=== PATIENT | male | born 1950 | race Caucasian/White ===

== ENCOUNTER 2016-07-20 20:44 | Emergency (ER) | payer BC, OTHER ==
[~2016-07-20] VITALS: Ht 180.3 cm; Wt 100.0 kg
[~2016-07-20 20:44] MED LIST: ALL300 PO; ASPCH81 PO; ATOR-54 PO; GLC/500 PO; HYDR12.56 PO; LISI-791 PO; METO-479 PO; NITR0.4S UT
[2016-07-20 20:45] VITALS: BP 151/90; PULSE 89; TEMP 36.7; O2SAT 97; Ht 180.3 cm; Wt 100.0 kg
[2016-07-20] MEDS ORDERED: AMOXICILLIN/CLAVULANATE TAB 875 MG TAB PO ONE (21:15)
[2016-07-20] MEDS ORDERED: AMOX875T PO (21:17)
--- NOTE | 2016-07-20 21:39 | EMERGENCY ROOM VISIT NOTE ---
History First contact with patient: 20:49 Chief Complaint: HEAD PAIN Stated Complaint: PAIN ON RT SIDE OF HEAD INTO NECK,HURT SO SWALLOW History of Present Illness The patient is a 66 year old male who presents to the Emergency Room with complaints of intermittent right-sided scalp, ear and neck discomfort. The patient reports that he does not recall any recent runny nose, congestion, sore throat or cough. He reports that the pain is worsened when he attempts to clear his ears by holding his breath. He has not noticed any pain radiating into the neck, nose or inside of the throat. The patient denies any history of seasonal allergies. The patient does have a history of tinnitus. He denies any burning sensation of the scalp, and denies any temporal pain. The patient reports that riding his garden tractor tonight was causing significant ear discomfort, and became concerned that he had an ear infection. He rates his discomfort a 7 out of 10. Review of Systems 10 system review was performed and was negative except for pertinent positives and negatives as indicated in history of present illness Past Medical/Surgical History Medical Problems: (1) Benign hypertension (2) Coronary artery bypass grafting (3) Coronary artery disease (4) Diabetes mellitus type 2 Surgical Problems: (1) H/O knee surgery (2) H/O shoulder surgery (3) H/O vasectomy Family History Unremarkable Social History Smoking Status: Never Smoker Alcohol Use: occasionally Marital Status: Occupation Status: employed Current/Historical Medications Scheduled Allopurinol (Zyloprim *), 300 MG PO HS Amoxicillin & Pot Clavulanate (Augmentin 875-125 mg), 1 TAB PO BID Aspirin (Aspirin Tab-Chewable *), 162 MG PO DAILY Atorvastatin (Lipitor), 20 MG PO HS Hydrochlorothiazide (Hctz), 12.5 MG PO DAILY Lisinopril (Zestril), 10 MG PO DAILY Metformin Hcl (Glucophage), 500 MG PO DAILY Metoprolol Succinate (Toprol Xl), 50 MG PO DAILY Nitroglycerin (Nitrostat), 0.4 MG UT PRN Allergies Coded Allergies: Heparin (Verified Allergy, Mild, 09/18/12) Sulfa Drugs (Verified Allergy, Unknown, 09/18/12) Physical Exam Vital Signs Date Time Temp Pulse Resp B/P Pulse Ox O2 Delivery O2 Flow Rate FiO2 07/20/16 20:45 36.7 89 20 151/90 97 Room Air Pain Rating (0-10): 4.0 Physical Exam CONSTITUTIONAL: Healthy and well nourished. Alert and oriented X 3 with positive affect. Patient does not appear in any acute distress. HEENT: Normocephalic, atraumatic. Pupils equal, round and reactive. Examination of the right ear shows a prior surgical resection. There is no external ear erythema or edema. Examination shows bulging of the TM without any air-fluid levels, effusions or TM erythema. The patient has no focal tenderness to palpation of the scalp or temporal region. No tenderness to palpation or percussion of the mastoids. He has mild tenderness through the area under the right ear. There is no soft tissue erythema in this region. OROPHARYNX: Examination does not show any obvious gingival erythema, tonsillar hypertrophy, posterior pharyngeal erythema, postnasal drip or exudates. Negative trismus. No evidence for Edward's angina or retropharyngeal abscess. NECK: Full active range of motion without discomfort. No JVD or carotid bruits on auscultation. LYMPHATICS: No cervical chain adenopathy. RESPIRATORY: Clear to auscultation bilaterally with no wheezing, crackles, rhonchi or stridor. CARDIOVASCULAR: Regular rate and rhythm with no murmurs, rubs or gallops. MUSCULOSKELETAL: Full range of motion of all joints without discomfort. INTEGUMENTARY: No rash or other significant dermatologic conditions noted. Specifically the patient does not have any scalp or facial rash. NEUROLOGIC: Cranial nerves II-XII grossly intact. No focal neurologic deficits noted. Medical Decision & Procedures Medications Administered Medications (Trade) Dose Ordered Sig/[facility] Route Start Time Stop Time Status Last Admin Dose Admin Amoxicillin/ Clavulanate Potassium (Augmentin Tab) 875 mg ONE ONCE PO 07/20/16 21:15 07/20/16 21:19 DC 07/20/16 21:24 875 MG ED Course Patient history and physical exam were performed. Nurse's notes were reviewed. Given physical exam findings and patient history, I feel that this is most likely a eustachian tube dysfunction or possible sinus etiology. The patient was provided a prescription for Augmentin 875 mg. He was dispensed one pill while in the emergency department. The patient reports that he will be going away over the weekend. He was given contact information for [facility] should his symptoms not improve by Saturday. He was instructed to seek further emergent reevaluation for any other concerning symptoms such as developing headache, fever, facial droop, right-sided numbness or other concerning symptoms. The patient was happy with plan of care, and voiced understanding of all discharge instructions. Medical Decision As indicated in the previous section, I suspect sinus versus eustachian tube dysfunction. His clinical exam is not consistent with temporal arteritis, mastoiditis, serous or suppurative otitis media. I also do not suspect carotid stenosis, CVA or migraine. Trigeminal neuritis and Coy's palsy were also considered, but has no extension to the face. There is no rash consistent with herpes zoster. Impression Primary Impression: Eustachian tube dysfunction Departure Information Dispostion Home / Self-Care Prescriptions Amoxicillin & Pot Clavulanate (Augmentin 875-125 mg) 1 Tab Tab 1 TAB PO BID for 10 Days, #20 TAB Prov: Og Pulido PA 07/20/16 Referrals Brady Payan D.O. Pagnotto, John F., D.O. Piatt, John E., III, M.D. (PCP) Forms HOME CARE DOCUMENTATION FORM, IMPORTANT VISIT INFORMATION Patient Instructions My [facility] Additional Instructions Complete all Augmentin antibiotics as prescribed. Ibuprofen or Tylenol as needed for pain. If pain has not significantly improved within the next 3 days, suggest follow- up with ENT (Dr. Payan) for further reevaluation and management. Seek further emergent reevaluation for any developing dizziness, fever, headache , right facial droop/paralysis or other concerning symptoms. Problem Qualifiers Primary Impression: Eustachian tube dysfunction Laterality: right Qualified Codes: H69.81 - Other specified disorders of eustachian tube, right ear
== END 2016-07-20 21:25 | disposition home or self-care (01) ==
LOC: C.EDB 20:44 → C.EDD 21:25
DX: H69.81 Other specified disorders of Eustachian tube, right ear (principal); I10 Essential (primary) hypertension; I25.10 Atherosclerotic heart disease of native coronary artery without angina pectoris; E11.9 Type 2 diabetes mellitus without complications; Z79.82 Long term (current) use of aspirin

== ENCOUNTER 2019-03-04 08:15 | Inpatient (IN) ==
[2019-03-04] MEDS ORDERED: fentaNYL citrate 100 MCG/2 ML VIAL IV STA (08:33)
[2019-03-04] MEDS ORDERED: SODIUM CHLORIDE 0.9% 500 ML IV ONE (08:33)
[2019-03-04] MEDS ORDERED: methylPREDNISolone 125 MG/2 ML VIAL IV STA (08:33)
[2019-03-04] MEDS ORDERED: ALBUT/IPRATROP 3MG/0.5MG NEB 3 ML VIAL NEB ONE (08:33)
[2019-03-04] MEDS ORDERED: HYDROCODONE/HOMATROPINE SYRUP 5MG/1.5MG 5ML UDP PO STA (08:33)
[2019-03-04 09:01] LABS: Basophils # (auto) 0.02 K/uL (0-0.2); Basophils % (auto) 0.1 %; Eosinophils # (auto) 0.03 K/uL (0-0.5); Eosinophils % (auto) 0.2 %; Hematocrit (blood only) 39.2 % (42-52); Hemoglobin 13.9 g/dL (14.0-18.0); Immature Granulocytes # (auto) 0.06 K/uL (0.00-0.02); Immature Granulocytes % (auto) 0.3 %; Lymphocytes # (auto) 1.08 K/uL (1.2-3.4); Lymphocytes % (auto) 5.5 %; Mean Corpuscular Hgb Conc 35.5 g/dL (32-36); Mean Corpuscular Volume 87.3 fL (80-100); Monocytes # (auto) 1.57 K/uL (0.11-0.59); Monocytes % (auto) 8.1 %; Neutrophils # (auto) 16.73 K/uL (1.4-6.5); Neutrophils % (auto) 85.8 %; Platelet Count 455 K/uL (130-400); RDW Coefficient of Variation 12.3 % (11.5-14.5); RDW Standard Deviation 39.5 fL (36.4-46.3); Red Blood Count 4.49 M/uL (4.7-6.1); White Blood Count 19.49 K/uL (4.8-10.8)
[2019-03-04 09:13] LABS: D Dimer 800 ug/L FEU (0-500)
--- NOTE | 2019-03-04 09:16 | XRay Report ---
SINGLE VIEW CHEST CLINICAL HISTORY: Cough and dyspnea. FINDINGS: An AP, portable, upright chest radiograph is compared to study dated 09/19/2012. The examina tion is degraded by portable technique and patient rotation. The heart is enlarged. The pulmonary vas culature is noncongested. There is elevation of the left hemidiaphragm with associated atelectasis. S cattered calcified granulomas are observed. Patchy airspace opacities are seen at the right lung base . No large pleural effusion or pneumothorax is seen. The skeletal structures are osteopenic. The bony thorax is grossly intact. IMPRESSION: 1. Mild cardiac enlargement without radiographic evidence of congestive failure. 2. Patchy airspace opacities are present at the right lung base. This could represent atelectasis kelly sara a mild infectious/inflammatory pneumonitis. Clinical correlation will be required. ACT 112: Negative or not required by law. Electronically signed by: Frank Gallardo M.D. 03/04/2019 9:14 AM
[2019-03-04 09:22] LABS: BUN Creatinine Ratio 11.2 (10-20); Blood Urea Nitrogen 14 mg/dl (7-18); Calcium 9.5 mg/dl (8.5-10.1); Carbon Dioxide 26 mmol/L (21-32); Chloride 97 mmol/L (98-107); Est GFR (African American) 68.7; Est GFR (Non-African American) 59.3; Glucose 216 mg/dl (70-99); Magnesium 1.6 mg/dl (1.8-2.4); Potassium 3.6 mmol/L (3.5-5.1); Sodium 132 mmol/L (136-145)
[2019-03-04 09:27] LABS: Troponin I < 0.015 ng/ml (0-0.045)
[2019-03-04] MEDS ORDERED: VANCOMYCIN HCL 1,750 MG in SODIUM CHLORIDE 0.9% 500 ML IV ONE (09:59)
[2019-03-04] MEDS ORDERED: VANCOMYCIN CONSULT ACTIVE PRN (09:59)
[2019-03-04] MEDS ORDERED: CEFEPIME 2,000 MG/20 ML VIAL IV STA (09:59)
[2019-03-04] MEDS ORDERED: SODIUM CHLORIDE 0.9% 1000ML 1,000 ML IV ONE (09:59)
[2019-03-04] MEDS ORDERED: OPTIRAY 320 125ml IV PRN (10:23)
--- NOTE | 2019-03-04 10:27 | CT Scan Report ---
CT SCAN OF THE BRAIN WITHOUT IV CONTRAST CLINICAL HISTORY: Headache. COMPARISON STUDY: No priors. TECHNIQUE: Unenhanced axial CT scan of the brain is performed from the vertex to the skull base. A do se lowering technique was utilized adhering to the principles of ALARA. CT DOSE: 537.48 mGy.cm FINDINGS: Brain parenchyma: There are age-related involutional changes noting mild subcortical and periventric ular microangiopathic change. There is no hemorrhage, mass effect, or evidence of acute territorial i schemia by CT criteria. Ramos-white matter differentiation is preserved. No extra-axial fluid collecti on is seen. Ventricles, sulci, cisterns: Prominent secondary to involutional change. Intracranial vasculature: There is atherosclerotic calcification of the cavernous carotid and vertebr al arteries. Calvarium: Unremarkable. Sinuses and mastoids: There is moderate mucosal thickening within the ethmoid sinuses. Mild mucosal t hickening is noted in the frontal and sphenoid sinuses. The mastoid air cells are well pneumatized. Orbits: The bony orbits are grossly intact. IMPRESSION: There is no hemorrhage, mass effect, or evidence of acute territorial ischemia by CT crit margoth. ACT 112: Negative or not required by law. Electronically signed by: Frank Gallardo M.D. 03/04/2019 10:25 AM
--- NOTE | 2019-03-04 10:44 | CT Scan Report ---
CT ANGIOGRAM OF THE CHEST CLINICAL HISTORY: Cough. Dyspnea. Atypical chest pain. COMPARISON STUDY: Chest x-ray dated 03/04/2019. TECHNIQUE: Following the IV administration of 93 cc of Optiray 320, CT angiogram of the chest was per formed from the upper abdomen to the thoracic inlet utilizing the pulmonary embolus protocol. Images are reviewed in the axial, sagittal, and coronal planes. 3-D MIPS images are created and assessed. IV contrast was administered without complication. A dose lowering technique was utilized adhering to the principles of ALARA. CT DOSE: 455.99 mGy.cm FINDINGS: Thyroid: Imaged portions of the thyroid gland are normal in size and attenuation. Thoracic aorta: There is atherosclerotic calcification of the thoracic aorta, which is normal in kerri jeff and demonstrates bovine variant arch anatomy. No dissection is seen. Pulmonary vasculature: The main pulmonary arteries are dilated suggesting pulmonary artery hypertensi on. There are no filling defects identified in main, lobar, or segmental pulmonary branches to sugges t pulmonary embolus. Evaluation of the peripheral branches is degraded by motion artifact. Heart: The heart is enlarged and without pericardial effusion. The coronary arteries are densely calc ified. Lungs and pleural spaces: Posterior change and volume loss in the left lung are consistent with previ ous surgical resection. There is patchy airspace consolidation present at the right lung base. Peribr onchial thickening is noted in the right middle and right lower lobes with intraluminal mucus pluggin g/secretions. There are scattered calcified thrombus. A 3 mm right upper lobe pulmonary nodule is see n on image #189. A 3 mm right apical nodule is seen on image #219. The trachea and central airways ar e clear. Mediastinum: There is no mediastinal lymphadenopathy. Ana: Enlarged right hilar nodes measure up to 14 mm in short axis. Axillae: There is no axillary lymphadenopathy. Upper abdomen: There is a small hiatal hernia. Partially visualized upper abdominal viscera is otherw ise grossly unremarkable. Skeletal structures: The skeletal structures are osteopenic. No lytic or blastic bony lesions are see n. IMPRESSION: 1. There is no evidence of pulmonary embolus in the main, lobar, or segmental pulmonary arteries. 2. Patchy airspace consolidation is seen at the right lung base as above. The appearance is typical f or pneumonia/aspiration pneumonitis. Clinical correlation will be required and radiographic follow-up to resolution is recommended. 3. Cardiomegaly. 4. Mildly enlarged right hilar lymph nodes are likely on a reactive basis. 5. Postoperative change and volume loss are consistent with previous left-sided pulmonary resection. Correlation with the patient's medical/surgical history will be required. 6. There are 2 low suspicion right upper lobe pulmonary nodules which measure 3 mm. Correlation with any prior outside imaging studies is recommended to assess for stability. 7. Additional findings as above. ACT 112: Positive. There are findings on this exam that require communication between the performing entity and the patient following Patient Test Result Information Act ([place] Act 112) guidelines. Electronically signed by: Frank Gallardo M.D. 03/04/2019 10:43 AM
[2019-03-04 10:52] LABS: Appearance Urine Clear (Clear); Bilirubin Urine Negative (Negative); Blood Urine Negative (Negative); Color Urine Yellow; Glucose Urine UA 1+ (Negative); Ketones Urine 1+ (Negative); Leukocyte Esterase Urine Negative (Negative); Nitrite Urine Negative (Negative); Protein Urine Negative (Negative); Specific Gravity Urine 1.018 (1.000-1.030); Urobilinogen Urine Negative (Negative); pH Urine 5.5 (4.5-7.5)
[2019-03-04] MEDS: MAGNESIUM SULFATE / D5W 1 GM/100 ML BAG IV SCH ×2 (11:28→12:44)
--- NOTE | 2019-03-04 12:12 | History & Physical Report ---
Date of Service March 04, 2019 Assessment & Plan (1) Sepsis: Possible related to Pneumonia Meet sepsis criteria on admission with tachycardia, Elevated WBC and Lactic acid CXR showed patchy airspace opacities are present at the right lung base. CTA chest showed patchy airspace consolidation is seen at the right lung base Received Vanco and Cefepime and IV steroid in the ER Will do nasal swab to r/o MRSA, then if positive will continue Vanco Will continue cefepime and add doxycycline Blood cx collected in the ER pending Will repeat Lactic Acid and continue IVF Will monitor WBC (2) Pneumonia: Present with worsening cough for about 3 weeks CTA chest showed Patchy airspace consolidation is seen at the right lung base Elevated Lactic acid and WBC Will continue abx with Cefepime and doxycycline Will add guaifenesin Will do neb treatment prn and oxygen supplement (3) Hypomagnesemia: Possible related to poor oral intake Mg on admission 1.6 Mg being replaced Continue to monitor electrolytes (4) Sinus tachycardia: Due to acute infection and low magnesium EKG on admission showed sinus rhythm with 1st degree av block Mg replaced Will continue IVF Continue Metoprolol Will monitor in med tele CAD s/p bypass Continue aspirin, statin and metoprolol HTN BP stable Continue Amlodipine and Lisinopril Continue Monitor BP Diabetes Most recent Hba1c 7 on 09/19 Metformin on hold Check Hba1c in am Will put on Novolog sliding scale Continue monitor BS Elevated D-Dimer Possible related to infection CTA chest negative for PE No edema and tenderness noted in b/l LE Cervical Spondylosis Follow up with pain management at [place] Schedule for injection on Saturday, will call to reschedule him. DVT px on SCD since pt is allergies with Heparin/ambulates CODE STATUS Full code History of Present Illness Chief Complaint: Worsening cough Primary Care Provider: Gold Gamino MD 69 years old male with past medical history of paroxysmal A. fib, hypertension, dyslipidemia, Gouty arthropathy, diabetes, cervical spondylosis CAD s/p bypass presented to the ER for worsening cough. Patient said for about 3 weeks he has been having a cough. He said for the first 2 weeks the cough was dry, but in the third week he started to have greenish productive sputum. Patient said that he did not seek any help from his PCP but he tries [id number]-rth-[id number] cough med with no relief. He said that in the last few days symptoms got worse to the point where he has not been eating or drinking much since Saturday. He said that his checked his temperature seems to have a low grade fever, but he said that he had some chills. He denies any recent travel or sick contacts. Denies any chest pain, palpitation, dizziness, and shortness of breath. Allergies Allergy/AdvReac Type Severity Reaction Status Date / Time heparin Allergy Mild Verified 03/04/19 09:55 Sulfa (Sulfonamide Allergy Unknown Verified 03/04/19 09:55 Antibiotics) Home Medications Home Medications Medication Instructions Recorded Confirmed Type allopurinol 300 mg PO 03/04/19 03/04/19 History amlodipine 10 mg PO [facility] 03/04/19 03/04/19 History aspirin 162 mg PO [facility] 03/04/19 03/04/19 History atorvastatin 40 mg PO 03/04/19 03/04/19 History lisinopril 40 mg PO [facility] 03/04/19 03/04/19 History metformin 1,000 mg PO BIDM 03/04/19 03/04/19 History metoprolol succinate 50 mg PO [facility] 03/04/19 03/04/19 History nitroglycerin [Nitrostat] 0.4 mg SUBLINGUAL UD 03/04/19 03/04/19 History sildenafil 100 mg PO UD 03/04/19 03/04/19 History Past Med/Surg History Medical History Eustachian tube dysfunction (Acute) 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 Surgical History H/O knee surgery (Resolved) H/O shoulder surgery (Resolved) H/O vasectomy (Resolved) History of external ear surgery Family History Other No pertinent family history in first degree relatives Social History Preferred Language: Indian Communication Ability: Effective Cube Cutter Required: No Beliefs That Will Affect Care: Tenriism Tenriism Beliefs: Advent Current Living Situation: Spouse Other Information That Helps Us Care for You: No Feels Safe at Home: Yes Safety Concerns: Feels Safe At This Time Smoking Status: Never smoker Hx Alcohol Use: Yes (Quit 10 years ago.) Alcohol type: beer Hx Substance Use: No Review of Systems Review of Systems: All systems reviewed & are unremarkable except as noted in HPI & below Physical Exam Physical Exam: General- No acute distress Head- atraumatic Eyes- PERRL, EOMI, ENT- oropharynx clear Neck- supple, no JVD Lungs- clear to auscultation Heart- +tachycardia, no murmur Abdomen- normal bowel sounds, soft, nontender Extremities- no calf tenderness Neuro- alert, oriented x 3; PERRL, EOMI; no facial palsy; no dysarthria Skin- warm & dry Results & Data Vital Signs (Past 12 Hours) Vital Signs Temp Pulse Pulse Resp BP BP Pulse Ox 03/04/19 11:38 120 H 24 119/68 90 03/04/19 10:08 125 H 22 133/78 92 03/04/19 09:06 100 H 18 95 03/04/19 08:18 36.3 C L 102 H 18 126/83 95 Diagnostic Findings [place], [place] [phone] CT Scan Report Patient: AVELINO PALACIOS Date: 03/04/19 MR#: [id number] Acct ID:[id number]: Date: 1950City Zip: [place] [address] Age: 69Location: ED Sex: M Room/Bed: Att Phy:Diagnosis: COUGH, MORENO FOR THREE WEEKS Phyllis Phy: Gold Gamino, III, MDService Date: 03/04/19 Fam Phy:Interpreting Phy: Frank Gallardo MD Admit Phy: Ordering Phy: Fredy Francis M.D. cc: ~ CT ANGIOGRAM OF THE CHEST CLINICAL HISTORY: Cough. Dyspnea. Atypical chest pain. COMPARISON STUDY: Chest x-ray dated 03/04/2019. TECHNIQUE: Following the IV administration of 93 cc of Optiray 320, CT angiogram of the chest was performed from the upper abdomen to the thoracic inlet utilizing the pulmonary embolus protocol. Images are reviewed in the axial, sagittal, and coronal planes. 3-D MIPS images are created and assessed. IV contrast was administered without complication. A dose lowering technique was utilized adhering to the principles of ALARA. CT DOSE: 455.99 mGy.cm FINDINGS: Thyroid: Imaged portions of the thyroid gland are normal in size and attenuation. Thoracic aorta: There is atherosclerotic calcification of the thoracic aorta, which is normal in caliber and demonstrates bovine variant arch anatomy. No dissection is seen. Pulmonary vasculature: The main pulmonary arteries are dilated suggesting pulmonary artery hypertension. There are no filling defects identified in main, lobar, or segmental pulmonary branches to suggest pulmonary embolus. Evaluation of the peripheral branches is degraded by motion artifact. Heart: The heart is enlarged and without pericardial effusion. The coronary arteries are densely calcified. Lungs and pleural spaces: Posterior change and volume loss in the left lung are consistent with previous surgical resection. There is patchy airspace consolidation present at the right lung base. Peribronchial thickening is noted in the right middle and right lower lobes with intraluminal mucus pluggin g/secretions. There are scattered calcified thrombus. A 3 mm right upper lobe pulmonary nodule is seen on image #189. A 3 mm right apical nodule is seen on image #219. The trachea and central airways are clear. Mediastinum: There is no mediastinal lymphadenopathy. Ana: Enlarged right hilar nodes measure up to 14 mm in short axis. Axillae: There is no axillary lymphadenopathy. Upper abdomen: There is a small hiatal hernia. Partially visualized upper abdominal viscera is otherwise grossly unremarkable. Skeletal structures: The skeletal structures are osteopenic. No lytic or blastic bony lesions are seen. IMPRESSION: 1. There is no evidence of pulmonary embolus in the main, lobar, or segmental pulmonary arteries. 2. Patchy airspace consolidation is seen at the right lung base as above. The appearance is typical for pneumonia/aspiration pneumonitis. Clinical correlation will be required and radiographic follow-up to resolution is recommended. 3. Cardiomegaly. 4. Mildly enlarged right hilar lymph nodes are likely on a reactive basis. 5. Postoperative change and volume loss are consistent with previous left-sided pulmonary resection. Correlation with the patient's medical/surgical history will be required. 6. There are 2 low suspicion right upper lobe pulmonary nodules which measure 3 mm. Correlation with any prior outside imaging studies is recommended to assess for stability. 7. Additional findings as above. ACT 112: Positive. There are findings on this exam that require communication between the performing entity and the patient following Patient Test Result Information Act ([place] Act 112) guidelines. Electronically signed by: Frank Gallardo M.D. 03/04/2019 10:43 AM Dictated: 03/04/19 1034 Transcribed: 03/04/[address] SCAN OF THE BRAIN WITHOUT IV CONTRAST CLINICAL HISTORY: Headache. COMPARISON STUDY: No priors. TECHNIQUE: Unenhanced axial CT scan of the brain is performed from the vertex to the skull base. A dose lowering technique was utilized adhering to the principles of ALARA. CT DOSE: 537.48 mGy.cm FINDINGS: Brain parenchyma: There are age-related involutional changes noting mild subcortical and periventricular microangiopathic change. There is no hemorrhage, mass effect, or evidence of acute territorial ischemia by CT criteria. Ramos- white matter differentiation is preserved. No extra-axial fluid collection is seen. Ventricles, sulci, cisterns: Prominent secondary to involutional change. Intracranial vasculature: There is atherosclerotic calcification of the cavernous carotid and vertebral arteries. Calvarium: Unremarkable. Sinuses and mastoids: There is moderate mucosal thickening within the ethmoid sinuses. Mild mucosal thickening is noted in the frontal and sphenoid sinuses. The mastoid air cells are well pneumatized. Orbits: The bony orbits are grossly intact. IMPRESSION: There is no hemorrhage, mass effect, or evidence of acute territorial ischemia by CT criteria. ACT 112: Negative or not required by law. Electronically signed by: Frank Gallardo M.D. 03/04/2019 10:25 AM Dictated: 03/04/19 1023 Transcribed: 03/04/19 1023 SINGLE VIEW CHEST CLINICAL HISTORY: Cough and dyspnea. FINDINGS: An AP, portable, upright chest radiograph is compared to study dated 09/19/2012. The examination is degraded by portable technique and patient rotation. The heart is enlarged. The pulmonary vasculature is noncongested. There is elevation of the left hemidiaphragm with associated atelectasis. Scattered calcified granulomas are observed. Patchy airspace opacities are seen at the right lung base. No large pleural effusion or pneumothorax is seen. The skeletal structures are osteopenic. The bony thorax is grossly intact. IMPRESSION: 1. Mild cardiac enlargement without radiographic evidence of congestive failure. 2. Patchy airspace opacities are present at the right lung base. This could represent atelectasis versus a mild infectious/inflammatory pneumonitis. Clinical correlation will be required. ACT 112: Negative or not required by law. Electronically signed by: Frank Gallardo M.D. 03/04/2019 9:14 AM Dictated: 03/04/19912 Transcribed: 03/04/19912 (1) Sepsis Sepsis acute organ dysfunction status: unspecified Sepsis type: sepsis due to unspecified organism Qualified Code(s): A41.9 - Sepsis, unspecified organism (2) Pneumonia Laterality: right Lung location: lower lobe of lung Pneumonia type: due to unspecified organism Qualified Code(s): J18.9 - Pneumonia, unspecified organism
--- NOTE | 2019-03-04 13:30 | Emergency Department Note ---
Entered by Robbie Calvert acting as a scribe for Fredy Francis MD ED Provider Note Name: AVELINO PALACIOS Age: 69 Arrives Via: Walk-In Informant: Patient CC: Flu like symptoms HPI: The patient is a 69 year old male who presents to the Emergency Room with complaints of constant flu like symptoms that started 3 weeks ago. The patient states he has been congested and short of breath since the onset. He endorses intermittent fevers and no appetite as well. The patient adds that about a week and a half ago he developed a productive cough. The patient reports associated chest pains secondary to the cough as well as a severe headache that is worsened by coughing. The patient states he has been trying Mucinex and Tylenol to try to control his symptoms but they have continued to persist. The patient has not used any breathing treatments at home but he does have a history of pneumonia. He also has a history of a partial lung resection that was required to treat an infection in his lung. The patient denies any urinary symptoms or syncopal episodes. He did receive the flu vaccine this season. Additionally, the patient mentioned that he follows up at [facility] for nerve pain in his neck. ROS: See above HPI for pertinent positives & negatives. A total of 10 systems reviewed and were otherwise negative. Past Medical History:HTN, DLP, Gout, DMII, Erectile dysfunction Past Surgical History:Lung resection, knee surg, shoulder surg, vasectomy, eutachian tube surg Family History:Reviewed with patient and no pertinent history Social History:Retired, lives with , no smoking, no drugs Home Medications:See Below Allergies:Heparin, Sulfa Vitals: BP: 126/83 Pulse: 102 RR: 18 Temp: 97.3F O2 Sat: 95 Physical Exam: GENERAL: Patient is uncomfortable appearing and in moderate distress. EYES: No scleral icterus, unremarkable pupils. ENT: Dehydrated appearing and mucous membranes dry, no nasal congestion. NECK: No masses appreciated, nomeningismus, trachea is midline. RESPIRATORY: Diffuse wheezing with junky lung sounds throughout. Decreased breath sounds over left lower lobe. Hacking cough noted. No dyspnea. No r honchi. CARDIOVASCULAR: Regular rate and rhythm.No murmurs, rubs, gallops appreciated. GASTROINTESTINAL: Abdomen soft, non-tender, no peritonitis.Bowel sounds positive.No masses appreciated. BACK: No midline tenderness, no CVA tenderness EXTREMITIES: Normal motion all extremities, no cyanosis, no edema. NEUROLOGIC: Alert and oriented, no acute motor or sensory deficits, no focal weakness, cranial nerves grossly intact. SKIN: No rash, no jaundice, no diaphoresis. ED Course: Prior Medical Record, Triage/Nursing Notes, Medications, Allergies reviewed by Me Vital Signs: reviewed and remarkable for Tachy Labs:Reviewed and remarkable for +WBC, +LA Interventions: Saline lock, NSS bolus 2 L IV, Cefepime 2 gm IV, Vanco 20mg/kg IV, Duoneb 1 hours, solumedrol 125mg IV, Hycodan 5ml PO Imaging:See Below EKG:Per My Interpretation: Indication SHOB: SR with 1st av block 86 bpm, qtc 435. No Ectopy. No Ischemia. Compared to EKG 09/19/12, no significant changes. Reassessments/Times: 0825: Past medical records reviewed. The patient was evaluated in room B04B, and a complete history and physical examination were performed. 0944: I reevaluated the patient and he is starting to feel better. His breathing has improved since the nebulizer and he agreed to with a chest CT. 1050: I updated the patient with results and we discussed the treatment plan. He is agreeable with the plan. 1055: I spoke to Dr. Jacque [facility] Hospitalist about the patient's case. He agreed to accept the patient for further evaluation. Blood pressure:Normal.No Referral necessary Disposition:Hospitalization Differentials:Differential: Infectious, Reactive Airway Disease, Pneumonia, Pneumothorax, COPD, CHF, ACS, Pulmonary Embolism, MSK, GI, Dissection, amongst other etiologies entertained. Medical Decision Makin yr old male with history of lung resection amongst DMII, HTN, etc arrives for evaluation worsening shortness of breath and cough. Very poor lung sounds on arrival and coughing continuously. Initial vitals oK. Hour neb started while labs obtained. CXR with questionable RLL infiltrate. WBC returned 19 at which point sepsis work-up begun. Blood cultures and Lactic acid obtained, fluids given. LA elevated as well. Empiric ABX begun. Suspect RLL infiltrate is pna just not blossumed yet due to dehydration, however for better evaluation and with elevated dimer felt CT Chest reasonable and will use angio. CT with evidence of RLL infiltrate as well. He was mild tachy post neb which could be sepsis but BP remains stable. O2s trending down post neb which could be vq mismatch vs infection. Will clearly need to come in and hospitalist consulted for further management. No evidene ACS currently. Not in fulminant shock at this time. Impression: Sepsis Pneumonia Hypomagnesemia Critical Care Time: I have personally spent greater than 35 minutes of critical care time in the direct management of this patient. Pneumonia Sepsis requiring prolonged neb and sepsis interventions. This was a life/limb threatening event. This includes time spent evaluating patient, direct bedside care, chart review, placing orders, interpretation of diagnostic studies, discussion with consultants, patient, and family members, as well as other required patient management activities. This 35 minutes is in excess of all separately billable procedures. The scribe's documentation has been prepared under my direction and personally reviewed by me in its entirety. I confirm that the note above accurately reflects all work, treatment, procedures, and medical decision making performed by me. 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 Surgical History H/O knee surgery (Resolved) H/O shoulder surgery (Resolved) H/O vasectomy (Resolved) History of external ear surgery Family History Other No pertinent family history in first degree relatives Social History Preferred Language: Belgian Communication Ability: Effective Hydrogenation Still Operator Required: No Beliefs That Will Affect Care: Temple Temple Beliefs: Denominational Current Living Situation: Spouse Other Information That Helps Us Care for You: No Feels Safe at Home: Yes Safety Concerns: Feels Safe At This Time Smoking Status: Never smoker Hx Alcohol Use: Yes (Quit 10 years ago.) Alcohol type: beer Hx Substance Use: No Results & Data Vital Signs Vital Signs - 24 hr 03/04/19 08:18 03/04/19 09:06 03/04/19 10:08 Temperature 36.3 C L Temperature Source Oral Pulse Rate 102 H Pulse Rate [Apical] 100 H 125 H Pulse Rhythm [Apical] Pulse Strength [Apical] Respiratory Rate 18 18 22 Respiratory Effort / Characteristics Non-Labored Spontaneous Respiratory Depth Blood Pressure 126/83 Blood Pressure [Left Arm] 133/78 Blood Pressure Mean 97 Blood Pressure Mean [Left Arm] 96 Blood Pressure Position [Left Arm] Pulse Oximetry 95 95 92 Oxygen Delivery Method Room Air Room Air Room Air Sepsis Recent Fever Within 48 Hours No Sepsis New/Unexplained Change in Mental Status No Sepsis Action Taken by Nursing No Action Required 03/04/19 11:38 03/04/19 12:29 Temperature Temperature Source Pulse Rate Pulse Rate [Apical] 120 H Pulse Rhythm [Apical] Regular Pulse Strength [Apical] Normal Respiratory Rate 24 Respiratory Effort / Characteristics Non-Labored Spontaneous Respiratory Depth Normal Blood Pressure Blood Pressure [Left Arm] 119/68 Blood Pressure Mean Blood Pressure Mean [Left Arm] 85 Blood Pressure Position [Left Arm] Lying Pulse Oximetry 90 Oxygen Delivery Method Room Air Room Air Sepsis Recent Fever Within 48 Hours Sepsis New/Unexplained Change in Mental Status Sepsis Action Taken by [facility] Medications Current Medication List: was personally reviewed by me Laboratory Data Attestation: I reviewed the patient's lab results. Result diagrams: 03/04/19 08:46 03/04/19 08:46 Lab Results 03/04/19 03/04/19 03/04/19 Range/Units 08:46 08:46 08:46 WBC 19.49 H (4.8-10.8) K/uL RBC 4.49 L (4.7-6.1) M/uL Hgb 13.9 L (14.0-18.0) g/dL Hct 39.2 L (42-52) % MCV 87.3 (80-100) fL MCH 31.0 (25-34) pg MCHC 35.5 (32-36) g/dL RDW Std Deviation 39.5 (36.4-46.3) fL RDW Coeff of Morris 12.3 (11.5-14.5) % Plt Count 455 H (130-400) K/uL MPV 10.0 (7.4-10.4) fL Immature Gran % (Auto) 0.3 % Neut % (Auto) 85.8 % Lymph % (Auto) 5.5 % Hooker % (Auto) 8.1 % Eos % (Auto) 0.2 % Baso % (Auto) 0.1 % Immature Gran # (Auto) 0.06 H (0.00-0.02) K/uL Neut # (Auto) 16.73 H (1.4-6.5) K/uL Lymph # (Auto) 1.08 L (1.2-3.4) K/uL Hooker # (Auto) 1.57 H (0.11-0.59) K/uL Eos # (Auto) 0.03 (0-0.5) K/uL Baso # (Auto) 0.02 (0-0.2) K/uL D-Dimer 800 H* (0-500) ug/L FEU Sodium 132 L (136-145) mmol/L Potassium 3.6 (3.5-5.1) mmol/L Chloride 97 L (98-107) mmol/L Carbon Dioxide 26 (21-32) mmol/L Anion Gap 9.0 (3-11) BUN 14 (7-18) mg/dl Creatinine 1.22 (0.6-1.4) mg/dl Est Cr Clr Drug Dosing 61.0 ml/min Est GFR ( Amer) 68.7 Est GFR (Non-Af Amer) 59.3 BUN/Creatinine Ratio 11.2 (10-20) Glucose 216 H (70-99) mg/dl Lactate (0.4-2.0) mmol/L Calcium 9.5 (8.5-10.1) mg/dl Magnesium 1.6 L (1.8-2.4) mg/dl Troponin I < 0.015 (0-0.045) ng/ml Urine Color Urine Appearance (Clear) Urine pH (4.5-7.5) Ur Specific [place] (1.000-1.030) Urine Protein (Negative) Urine Glucose (UA) (Negative) Urine Ketones (Negative) Urine Blood (Negative) Urine Nitrite (Negative) Urine Bilirubin (Negative) Urine Urobilinogen (Negative) Ur Leukocyte Esterase (Negative) Influenza Type A Ag (Neg) Influenza Type B Ag (Neg) 03/04/19 03/04/19 03/04/19 Range/Units 09:11 09:21 10:27 WBC (4.8-10.8) K/uL RBC (4.7-6.1) M/uL Hgb (14.0-18.0) g/dL Hct (42-52) % MCV (80-100) fL MCH (25-34) pg MCHC (32-36) g/dL RDW Std Deviation (36.4-46.3) fL RDW Coeff of Morris (11.5-14.5) % Plt Count (130-400) K/uL MPV (7.4-10.4) fL Immature Gran % (Auto) % Neut % (Auto) % Lymph % (Auto) % Hooker % (Auto) % Eos % (Auto) % Baso % (Auto) % Immature Gran # (Auto) (0.00-0.02) K/uL Neut # (Auto) (1.4-6.5) K/uL Lymph # (Auto) (1.2-3.4) K/uL Hooker # (Auto) (0.11-0.59) K/uL Eos # (Auto) (0-0.5) K/uL Baso # (Auto) (0-0.2) K/uL D-Dimer (0-500) ug/L FEU Sodium (136-145) mmol/L Potassium (3.5-5.1) mmol/L Chloride (98-107) mmol/L Carbon Dioxide (21-32) mmol/L Anion Gap (3-11) BUN (7-18) mg/dl Creatinine (0.6-1.4) mg/dl Est Cr Clr Drug Dosing ml/min Est GFR ( Amer) Est GFR (Non-Af Amer) BUN/Creatinine Ratio (10-20) Glucose (70-99) mg/dl Lactate 2.7 H* (0.4-2.0) mmol/L Calcium (8.5-10.1) mg/dl Magnesium (1.8-2.4) mg/dl Troponin I (0-0.045) ng/ml Urine Color Yellow Urine Appearance Clear (Clear) Urine pH 5.5 (4.5-7.5) Ur Specific [place] 1.018 (1.000-1.030) Urine Protein Negative (Negative) Urine Glucose (UA) 1+ H (Negative) Urine Ketones 1+ H (Negative) Urine Blood Negative (Negative) Urine Nitrite Negative (Negative) Urine Bilirubin Negative (Negative) Urine Urobilinogen Negative (Negative) Ur Leukocyte Esterase Negative (Negative) Influenza Type A Ag Neg for Influ A (Neg) Influenza Type B Ag Neg for Influ B (Neg) Administered Medications Ioversol (Optiray 320 125ml) 93 ml IV ONCE PRN PRN Reason: Interaction Checking Stop: 03/08/19 10:22 Last Admin: 03/04/19 10:23 Dose: 93 ml Documented by: [id number] Discontinued Medications Albuterol (Duoneb) 12 ml NEB ONE ONE Stop: 03/04/19 08:34 Last Admin: 03/04/19 09:05 Dose: 12 ml Documented by: [id number] Fentanyl Citrate (Fentanyl Citrate) 50 mcg IV NOW STA Stop: 03/04/19 08:34 Last Admin: 03/04/19 08:54 Dose: 50 mcg Documented by: [id number] Hydrocodone Bit/Homatropine Methylb (Hycodan) 5 ml PO NOW STA Stop: 03/04/19 08:34 Last Admin: 03/04/19 08:54 Dose: 5 ml Documented by: [id number] Sodium Chloride (Nss) 500 mls @ 999 mls/hr IV .Q31M ONE Stop: 03/04/19 09:03 Last Infusion: 03/04/19 09:53 Dose: 0 mls/hr Documented by: [id number] Admin: 03/04/19 08:55 Dose: 999 mls/hr Documented by: [id number] Sodium Chloride (Nss 1000ml) 1,000 mls @ 999 mls/hr IV .Q1H1M ONE Stop: 03/04/19 10:59 Last Admin: 03/04/19 10:05 Dose: 999 mls/hr Documented by: [id number] Cefepime HCl (Maxipime) 2,000 mg in 20 mls @ 5 mls/min IV NOW STA Stop: 03/04/19 10:02 Last Admin: 03/04/19 10:05 Dose: 5 mls/min Documented by: [id number] Vancomycin HCl 1,750 mg/ (Sodium Chloride) 535 mls @ 200 mls/hr IV NOW ONE Stop: 03/04/19 12:39 Last Admin: 03/04/19 10:23 Dose: 200 mls/hr Documented by: [id number] Magnesium Sulfate/Dextrose (Magnesium Sulfate / D5w) 1 gm in 100 mls @ 100 mls/hr IV Q1H [facility] Stop: 03/04/19 12:59 Last Admin: 03/04/19 12:44 Dose: 100 mls/hr Documented by: [id number] Infusion: 03/04/19 12:28 Dose: 100 mls/hr Documented by: [id number] Admin: 03/04/19 11:28 Dose: 100 mls/hr Documented by: [id number] Methylprednisolone (Solumedrol) 125 mg IV NOW STA Stop: 03/04/19 08:34 Last Admin: 03/04/19 08:55 Dose: 125 mg Documented by: [id number] Imaging Data Radiologist's Impression: Radiology results as stated below per my review and the radiologist's interpretation: SINGLE VIEW CHEST CLINICAL HISTORY: Cough and dyspnea. FINDINGS: An AP, portable, upright chest radiograph is compared to study dated 09/19/2012. The examination is degraded by portable technique and patient rotation. The heart is enlarged. The pulmonary vasculature is noncongested. There is elevation of the left hemidiaphragm with associated atelectasis. Scatt ered calcified granulomas are observed. Patchy airspace opacities are seen at the right lung base. No large pleural effusion or pneumothorax is seen. The skeletal structures are osteopenic. The bony thorax is grossly intact. IMPRESSION: 1. Mild cardiac enlargement without radiographic evidence of congestive failure. 2. Patchy airspace opacities are present at the right lung base. This could rep resent atelectasis versus a mild infectious/inflammatory pneumonitis. Clinical correlation will be required. ACT 112: Negative or not required by law. Electronically signed by: Frank Gallardo M.D. 03/04/2019 9:[address] SCAN OF THE BRAIN WITHOUT IV CONTRAST CLINICAL HISTORY: Headache. COMPARISON STUDY: No priors. TECHNIQUE: Unenhanced axial CT scan of the brain is performed from the vertex to the skull base. A dose lowering technique was utilized adhering to the principles of ALARA. CT DOSE: 537.48 mGy.cm FINDINGS: Brain parenchyma: There are age-related involutional changes noting mild subcortical and periventricular microangiopathic change. There is no hemorrhage, mass effect, or evidence of acute territorial ischemia by CT criteria. Ramos- white matter differentiation is preserved. No extra-axial fluid collection is seen. Ventricles, sulci, cisterns: Prominent secondary to involutional change. Intracranial vasculature: There is atherosclerotic calcification of the cavernous carotid and vertebral arteries. Calvarium: Unremarkable. Sinuses and mastoids: There is moderate mucosal thickening within the ethmoid sinuses. Mild mucosal thickening is noted in the frontal and sphenoid sinuses. The mastoid air cells are well pneumatized. Orbits: The bony orbits are grossly intact. IMPRESSION: There is no hemorrhage, mass effect, or evidence of acute territorial ischemia by CT criteria. ACT 112: Negative or not required by law. Electronically signed by: Frank Gallardo M.D. 03/04/2019 10:[address] ANGIOGRAM OF THE CHEST CLINICAL HISTORY: Cough. Dyspnea. Atypical chest pain. COMPARISON STUDY: Chest x-ray dated 03/04/2019. TECHNIQUE: Following the IV administration of 93 cc of Optiray 320, CT angiogram of the chest was performed from the upper abdomen to the thoracic inlet utilizing the pulmonary embolus protocol. Images are reviewed in the axial, sagittal, and coronal planes. 3-D MIPS images are created and assessed. IV contrast was administered without complication. A dose lowering technique was utilized adhering to the principles of ALARA. CT DOSE: 455.99 mGy.cm FINDINGS: Thyroid: Imaged portions of the thyroid gland are normal in size and attenuation. Thoracic aorta: There is atherosclerotic calcification of the thoracic aorta, which is normal in caliber and demonstrates bovine variant arch anatomy. No dissection is seen. Pulmonary vasculature: The main pulmonary arteries are dilated suggesting pulmonary artery hypertension. There are no filling defects identified in main, lobar, or segmental pulmonary branches to suggest pulmonary embolus. Evaluation of the peripheral branches is degraded by motion artifact. Heart: The heart is enlarged and without pericardial effusion. The coronary arteries are densely calcified. Lungs and pleural spaces: Posterior change and volume loss in the left lung are consistent with previous surgical resection. There is patchy airspace consolidat ion present at the right lung base. Peribronchial thickening is noted in the right middle and right lower lobes with intraluminal mucus plugging/secretions. There are scattered calcified thrombus. A 3 mm right upper lobe pulmonary nodule is seen on image #189. A 3 mm right apical nodule is seen on image #219. The trachea and central airways are clear. Mediastinum: There is no mediastinal lymphadenopathy. Ana: Enlarged right hilar nodes measure up to 14 mm in short axis. Axillae: There is no axillary lymphadenopathy. Upper abdomen: There is a small hiatal hernia. Partially visualized upper abdominal viscera is otherwise grossly unremarkable. Skeletal structures: The skeletal structures are osteopenic. No lytic or blastic bony lesions are seen. IMPRESSION: 1. There is no evidence of pulmonary embolus in the main, lobar, or segmental pulmonary arteries. 2. Patchy airspace consolidation is seen at the right lung base as above. The appearance is typical for pneumonia/aspiration pneumonitis. Clinical correlation will be required and radiographic follow-up to resolution is recommended. 3. Cardiomegaly. 4. Mildly enlarged right hilar lymph nodes are likely on a reactive basis. 5. Postoperative change and volume loss are consistent with previous left-sided pulmonary resection. Correlation with the patient's medical/surgical history will be required. 6. There are 2 low suspicion right upper lobe pulmonary nodules which measure 3 mm. Correlation with any prior outside imaging studies is recommended to assess for stability. 7. Additional findings as above. ACT 112: Positive. There are findings on this exam that require communication between the performing entity and the patient following Patient Test Result Information Act ([place] Act 112) guidelines. Electronically signed by: Frank Gallardo M.D. 03/04/2019 10:43 AM Blood Pressure Blood Pressure Findings: Elevated blood pressure Blood Pressure Disposition: further management by hospitalist Discharge Plan Visit Data Chief Complaint: Cough Stated Complaint: COUGH, MORENO FOR THREE WEEKS ED Provider: Fredy Francis Discharge Problem: Sepsis, Pneumonia, Hypomagnesemia Patient Disposition: Being Evaluated by Hospitalist Forms Stand Alone Forms: [employer] Prescriptions Prescriptions: No Action atorvastatin 40 mg tablet 40 mg PO HS RF: 0 metoprolol succinate 100 mg tablet extended release 24 hr 50 mg PO QAM RF: 0 aspirin 81 mg Tablet,Delayed Release (Dr/Ec) 162 mg PO QAM RF: 0 sildenafil 100 mg tablet 100 mg PO UD RF: 0 amlodipine 10 mg tablet 10 mg PO QAM RF: 0 metformin 1,000 mg tablet 1,000 mg PO BIDM RF: 0 nitroglycerin [Nitrostat] 0.4 mg Tablet, Sublingual 0.4 mg sublingual UD RF: 0 allopurinol 300 mg tablet 300 mg PO HS RF: 0 lisinopril 40 mg tablet 40 mg PO QAM RF: 0 Referrals Referrals: Gold Gamino MD [Primary Care Provider] - Discharge Problem: Sepsis Qualifiers: Sepsis type: sepsis due to unspecified organism Sepsis acute organ dysfunction status: unspecified Qualified Code(s): A41.9 - Sepsis, unspecified organism Pneumonia Qualifiers: Pneumonia type: due to unspecified organism Laterality: right Lung location: lower lobe of lung Qualified Code(s): J18.9 - Pneumonia, unspecified organism The scribe's documentation has been prepared under my direction and personally reviewed by me in its entirety. I confirm that the note above accurately reflects all work, treatment, procedures, and medical decision making performed by me.
[2019-03-04] MEDS ORDERED: GLUCOSE 40% GEL 15 GM TUBE PO PRN (14:24)
[2019-03-04] MEDS ORDERED: DEXTROSE 50% 50 ML SYRINGE IV PRN (14:24)
[2019-03-04] MEDS ORDERED: SODIUM CHLORIDE 0.9% 1000ML 1,000 ML IV SCH (14:24)
[2019-03-04] MEDS ORDERED: GLUCAGON FOR INJ 1 MG VIAL SQ PRN (14:24)
[2019-03-04] MEDS ORDERED: GLUCOSE 10 TABS/TUBE PO PRN (14:24)
[2019-03-04] MEDS ORDERED: CARBOHYDRATES FOR HYPOGLYCEMIA PO PRN (14:24)
--- NOTE | 2019-03-04 15:16 | Pharmacy Report ---
Pharmacy Abx Initial Consult - Date of Service March 04, 2019 - Pharmacy Dosing Scope Date of Consult: 03/04/19 Consultation requested by: Dr. Brito Pharmacy is consulted to initiate Vancomycin IV/PO dosing therapy, order appropriate labs and adjust drug dose/frequency. - Subjective The patient is a 69 year old M admitted on 03/04/19 12:09. - Objective Height: 6 ft Weight: 91.7 kg Vital Signs (Past 12hrs): Vital Signs Temp Pulse Pulse Resp BP BP Pulse Ox 03/04/19 13:40 112 H 20 122/78 92 03/04/19 11:38 120 H 24 119/68 90 03/04/19 10:08 125 H 22 133/78 92 03/04/19 09:06 100 H 18 95 03/04/19 08:18 36.3 C L 102 H 18 126/83 95 Lab Results (24hrs): Laboratory Tests (24 Hours) 03/04/19 03/04/19 08:46 08:46 WBC 19.49 H Neut # (Auto) 16.73 H Creatinine 1.22 Est Cr Clr Drug Dosing 61.0 Micro Results: 03/04/19 09:20 Aerobic Blood Culture - Pending Blood Anaerobic Blood Culture - Pending 03/04/19 09:21 Aerobic Blood Culture - Pending Blood Anaerobic Blood Culture - Pending - Risk Factors for Resistance * No known risk factors - Assessment & Plan Assessment 69 year old M admitted for sepsis with likely pulmonary source. Vancomycin started for pneumonia. Pt also on cefepime and doxycycline. * MRSA nasal swab ordered * Blood cultures ordered * Unknown baseline renal function * Pt has history of DM Plan Vancomycin for treatment of pneumonia Vancomycin IV * Estimated PK Parameters: Vd 0.7 L/kg, Freddy 0.055 hr-1, t1/2 12.6 hr * Loading dose: 1750 mg (19 mg/kg) * Maintenance dose: 1500 mg IV (16 mg/kg) every 16 hours * Goal trough level for pneumonia : 15 to 20 mcg/mL * Trough level ordered for 03/06/19 @1930 Pharmacy will continue to follow and will adjust dose/frequency as necessary. Thank you.
[2019-03-04] MEDS ORDERED: XOPENEX/ATROVENT 0.63mg/0.5MG NEB COMBO NEB PRN (15:32)
[2019-03-04] MEDS: DOXYCYCLINE HYCLATE 100 MG CAP PO SCH ×2 (15:34→20:14)
[2019-03-04] MEDS: guaiFENesin 200 MG TAB PO SCH ×2 (15:34→21:19)
[2019-03-04] MEDS ORDERED: LEVALBUTEROL HCL 0.63 MG/3 ML NEB INH PRN (15:35)
[2019-03-04] MEDS ORDERED: IPRATROPIUM BROMIDE NEB SOLN 0.02% 2.5 ML VIAL INH PRN (15:36)
[2019-03-04] MEDS: INSULIN ASPART 100 UNITS/ML 3 ML PEN SC SCH ×2 (17:18→20:14)
[2019-03-04] MEDS ORDERED: VANCOMYCIN HCL 1,500 MG in SODIUM CHLORIDE 0.9% 500 ML IV SCH (20:00)
[2019-03-04] MEDS: allopurinoL 300 MG TAB PO SCH (20:13)
[2019-03-04] MEDS: ATORVASTATIN 40 MG TAB PO SCH (20:14)
[2019-03-04] MEDS: INSULIN GLARGINE SOLOSTAR 100 UNITS/ML 3 ML PEN SC SCH (21:18)
[2019-03-04] MEDS: CEFEPIME 1,000 MG in SYRINGE 0 ML IV SCH (21:20)
[2019-03-04] MEDS ORDERED: INSULIN GLARGINE SOLOSTAR 100 UNITS/ML 3 ML PEN SC STA (22:54)
[2019-03-05] MEDS: guaiFENesin 200 MG TAB PO SCH ×3 (05:13→21:17)
[2019-03-05 05:52] LABS: Hematocrit (blood only) 32.9 % (42-52); Hemoglobin 11.4 g/dL (14.0-18.0); Mean Corpuscular Hemoglobin 29.6 pg (25-34); Mean Corpuscular Hgb Conc 34.7 g/dL (32-36); Mean Corpuscular Volume 85.5 fL (80-100); Platelet Count 343 K/uL (130-400); RDW Coefficient of Variation 12.6 % (11.5-14.5); RDW Standard Deviation 38.9 fL (36.4-46.3); Red Blood Count 3.85 M/uL (4.7-6.1); White Blood Count 13.81 K/uL (4.8-10.8)
[2019-03-05 06:32] LABS: BUN Creatinine Ratio 14.4 (10-20); Calcium 8.7 mg/dl (8.5-10.1); Creatinine Clr Calc Pharmacy 72.9 ml/min; Est GFR (African American) 85.3; Est GFR (Non-African American) 73.6; Magnesium 2.1 mg/dl (1.8-2.4); Potassium 3.5 mmol/L (3.5-5.1)
[2019-03-05] MEDS: DOXYCYCLINE HYCLATE 100 MG CAP PO SCH ×2 (08:27→21:18)
[2019-03-05] MEDS: METOPROLOL SUCC 50MG EXT REL TAB PO SCH (08:28)
[2019-03-05] MEDS: ASPIRIN 81 MG ECTAB PO SCH (08:28)
[2019-03-05] MEDS: AMLODIPINE BESYLATE 5 MG TAB PO SCH (08:28)
[2019-03-05] MEDS: lisinopriL 40 MG TAB PO SCH (08:28)
[2019-03-05] MEDS: INSULIN GLARGINE SOLOSTAR 100 UNITS/ML 3 ML PEN SC SCH ×2 (08:31→21:20)
[2019-03-05] MEDS: INSULIN ASPART 100 UNITS/ML 3 ML PEN SC SCH ×4 (08:31→21:19)
[2019-03-05] MEDS: CEFEPIME 1,000 MG in SYRINGE 0 ML IV SCH ×2 (08:41→21:17)
[2019-03-05 12:30] LABS: Estimated Average Glucose 163 mg/dl; Hemoglobin A1C 7.3 % (4.5-5.6)
--- NOTE | 2019-03-05 13:36 | Hospitalist Progress Note ---
Date of Service March 05, 2019 Assessment & Plan (1) Sepsis: Sepsis Community Acquired Pneumonia --CTA:There is no evidence of pulmonary embolus in the main, lobar, or segmental pulmonary arteries. Patchy airspace consolidation is seen at the right lung base as above. The appearance is typical for pneumonia/aspiration pneumonitis. Clinical correlation will be required and radiographic follow-up to resolution is recommended. Cardiomegaly. Mildly enlarged right hilar lymph nodes are likely on a reactive basis. Postoperative change and volume loss are consistent with previous left-sided pulmonary resection. Correlation with the patient's medical/surgical history will be required. There are 2 low suspicion right upper lobe pulmonary nodules which measure 3 mm. Correlation with any prior outside imaging studies is recommended to assess for stability. --MRSA Negative --Lactate levels normalized after IV fluids --Continue Doxycycline, Cefepime Day #2 --Received IV fluids --Blood Cultures:No growth to date Pulmonary Nodules Also noted Pulmonary nodule on prior Imaging in 2004 Follow up as outpatient with repeat Imaging (2) Pneumonia: As Above (3) Hypomagnesemia: Replete electrolytes as needed (4) Sinus tachycardia: Monitor CAD S/P Bypass Continue aspirin, statin, metoprolol HTN BP slightly elevated Continue Amlodipine, Lisinopril, Metoprolol Monitor DM II Last Hb A1C: 7.3 Metformin on hold Continue ISS, Lantus while hospitalized Monitor BGs Elevated D-Dimer CTA chest negative for PE B/L LE No edema, calf tenderness Cervical Spondylosis Follow up with pain management at [place] Monitor DVT Px: SCDs Re: H/O allergy to Heparin Encourage to ambulate CODE STATUS Full code Disposition Expect to discharge home when stable Subjective Patient is seen and examined at bedside Complains of significant cough Also states having chest soreness with cough and headache Denies any SOB, dizziness, nausea, abd pain Family at bedside Offers no other complaints Review of Systems Review of Systems: All systems reviewed & are unremarkable except as noted in HPI & below Physical Exam Physical Exam: Physical Exam: Vitals signs as noted above General Appearance:Moderately built and nourished, no apparent distress Head: normocephalic, Atraumatic Eyes: normal inspection, EOMI Neck: supple, Trachea midline Respiratory/Chest: Normal breath sounds, Minimal R basal crackles, No accessory muscle use Cardiovascular: S1, S2, No murmur Abdomen/GI:Soft, Non tender, Bowel sounds present Extremities/Musculoskelatal:normal inspection, no edema Neurologic/Psych:AAOX3, grossly no focal neurological deficits Skin: normal color, warm Results & Data Vital Signs (Past 12 Hours) Vital Signs Temp Pulse Pulse Resp BP Pulse Ox 03/05/19 11:34 36.5 C 82 18 149/79 H 94 03/05/19 08:06 36.6 C 77 18 146/78 H 94 03/05/19 07:06 83 03/05/19 03:17 36.4 C L 91 H 20 129/84 94 Laboratory Results Short CBC 03/05/19 Range/Units 05:26 WBC 13.81 H (4.8-10.8) K/uL Hgb 11.4 L (14.0-18.0) g/dL Hct 32.9 L (42-52) % Plt Count 343 (130-400) K/uL BMP 03/05/19 05:26 Sodium 140 D Potassium 3.5 Chloride 111 H Carbon Dioxide 21 BUN 15 Creatinine 1.02 Glucose 188 H Calcium 8.7 (1) Sepsis Sepsis acute organ dysfunction status: unspecified Sepsis type: sepsis due to unspecified organism Qualified Code(s): A41.9 - Sepsis, unspecified organism (2) Pneumonia Laterality: right Lung location: lower lobe of lung Pneumonia type: due to u nspecified organism Qualified Code(s): J18.9 - Pneumonia, unspecified organism
[2019-03-05] MEDS: LACTOBACILLUS ACIDOPHILUS (FLORANEX) TAB PO SCH ×2 (17:34→21:18)
[2019-03-05] MEDS: ACETAMINOPHEN 325 MG TAB PO PRN (18:36)
[2019-03-05] MEDS: ATORVASTATIN 40 MG TAB PO SCH (21:18)
[2019-03-05] MEDS: allopurinoL 300 MG TAB PO SCH (21:19)
[2019-03-06] MEDS: guaiFENesin 200 MG TAB PO SCH ×3 (06:00→20:58)
[2019-03-06 06:20] LABS: Hemoglobin 11.7 g/dL (14.0-18.0); Mean Corpuscular Hemoglobin 29.6 pg (25-34); Mean Corpuscular Hgb Conc 34.4 g/dL (32-36); Mean Corpuscular Volume 86.1 fL (80-100); Mean Platelet Volume 9.5 fL (7.4-10.4); Platelet Count 371 K/uL (130-400); RDW Coefficient of Variation 12.5 % (11.5-14.5); RDW Standard Deviation 39.6 fL (36.4-46.3); Red Blood Count 3.95 M/uL (4.7-6.1); White Blood Count 11.33 K/uL (4.8-10.8)
[2019-03-06 06:49] LABS: BUN Creatinine Ratio 14.8 (10-20); Calcium 9.1 mg/dl (8.5-10.1); Creatinine Clr Calc Pharmacy 78.3 ml/min; Est GFR (Non-African American) 80.2; Magnesium 1.8 mg/dl (1.8-2.4); Potassium 3.6 mmol/L (3.5-5.1)
[2019-03-06] MEDS: INSULIN ASPART 100 UNITS/ML 3 ML PEN SC SCH ×4 (08:29→20:21)
[2019-03-06] MEDS: INSULIN GLARGINE SOLOSTAR 100 UNITS/ML 3 ML PEN SC SCH ×2 (08:30→20:22)
[2019-03-06] MEDS: LACTOBACILLUS ACIDOPHILUS (FLORANEX) TAB PO SCH ×4 (08:38→20:12)
[2019-03-06] MEDS: ASPIRIN 81 MG ECTAB PO SCH (08:40)
[2019-03-06] MEDS: AMLODIPINE BESYLATE 5 MG TAB PO SCH (08:41)
[2019-03-06] MEDS: METOPROLOL SUCC 50MG EXT REL TAB PO SCH (08:41)
[2019-03-06] MEDS: DOXYCYCLINE HYCLATE 100 MG CAP PO SCH ×2 (08:42→20:13)
[2019-03-06] MEDS: lisinopriL 40 MG TAB PO SCH (08:42)
[2019-03-06] MEDS: ACETAMINOPHEN 325 MG TAB PO PRN (08:42)
[2019-03-06] MEDS: CEFEPIME 1,000 MG in SYRINGE 0 ML IV SCH ×2 (08:45→21:00)
[2019-03-06] MEDS: BENZONATATE 100 MG CAPSULE PO PRN ×2 (08:45→20:31)
[2019-03-06] MEDS ORDERED: POLYETHYLENE (MIRALAX) 17 GM PACK PO PRN (15:15)
--- NOTE | 2019-03-06 18:52 | Hospitalist Progress Note ---
Date of Service March 06, 2019 Assessment & Plan (1) Sepsis: Sepsis Community Acquired Pneumonia --CTA:There is no evidence of pulmonary embolus in the main, lobar, or segmental pulmonary arteries. Patchy airspace consolidation is seen at the right lung base as above. The appearance is typical for pneumonia/aspiration pneumonitis. Clinical correlation will be required and radiographic follow-up to resolution is recommended. Cardiomegaly. Mildly enlarged right hilar lymph nodes are likely on a reactive basis. Postoperative change and volume loss are consistent with previous left-sided pulmonary resection. Correlation with the patient's medical/surgical history will be required. There are 2 low suspicion right upper lobe pulmonary nodules which measure 3 mm. Correlation with any prior outside imaging studies is recommended to assess for stability. --MRSA Negative --Lactate levels normalized after IV fluids --Continue Doxycycline, Cefepime Day #3 --Received IV fluids --Blood Cultures:No growth to date --Plan to transition to p.o. antibiotics upon discharge Pulmonary Nodules Also noted Pulmonary nodule on prior Imaging in 2004 Follow up as outpatient with repeat Imaging Constipation Bowel regimen Encouraged to ambulate (2) Pneumonia: As Above (3) Hypomagnesemia: Replete electrolytes as needed (4) Sinus tachycardia: Monitor CAD S/P Bypass Continue aspirin, statin, metoprolol HTN Stable Continue Amlodipine, Lisinopril, Metoprolol Monitor DM II Last Hb A1C: 7.3 Metformin on hold Continue ISS, Lantus while hospitalized Monitor BGs Elevated D-Dimer CTA chest negative for PE B/L LE No edema, calf tenderness Cervical Spondylosis Follow up with pain management at [place] Monitor DVT Px: SCDs Re: H/O allergy to Heparin Encourage to ambulate CODE STATUS Full code Disposition Expect to discharge home when stable Subjective Patient is seen and examined at bedside Reports constipation Cough significantly improved Denies any SOB, dizziness, nausea, abd pain Family at bedside Offers no other complaints Review of Systems Review of Systems: All systems reviewed & are unremarkable except as noted in HPI & below Physical Exam Physical Exam: Physical Exam: Vitals signs as noted above General Appearance:Moderately built and nourished, no apparent distress Head: normocephalic, Atraumatic Eyes: normal inspection, EOMI Neck: supple, Trachea midline Respiratory/Chest: Normal breath sounds, CTA, No accessory muscle use Cardiovascular: S1, S2, No murmur Abdomen/GI:Soft, Non tender, Bowel sounds present Extremities/Musculoskelatal:normal inspection, no edema Neurologic/Psych:AAOX3, grossly no focal neurological deficits Skin: normal color, warm Results & Data Vital Signs (Past 12 Hours) Vital Signs Temp Pulse Pulse Resp BP BP Pulse Ox 03/06/19 16:00 79 03/06/19 11:22 36.9 C 68 18 122/78 92 03/06/19 08:00 66 03/06/19 07:25 37.0 C 66 18 131/67 91 Laboratory Results Short CBC 03/06/19 Range/Units 06:11 WBC 11.33 H (4.8-10.8) K/uL Hgb 11.7 L (14.0-18.0) g/dL Hct 34.0 L (42-52) % Plt Count 371 (130-400) K/uL BMP 03/06/19 06:11 Sodium 140 Potassium 3.6 Chloride 107 Carbon Dioxide 28 BUN 14 Creatinine 0.95 Glucose 127 H Calcium 9.1 (1) Sepsis Sepsis acute organ dysfunction status: unspecified Sepsis type: sepsis due to unspecified organism Qualified Code(s): A41.9 - Sepsis, unspecified organism (2) Pneumonia Laterality: right Lung location: lower lobe of lung Pneumonia type: due to unspecified organism Qualified Code(s): J18.9 - Pneumonia, unspecified organism
[2019-03-06] MEDS ORDERED: VANCOMYCIN TROUGH ONE (19:30)
[2019-03-06] MEDS: ATORVASTATIN 40 MG TAB PO SCH (20:13)
[2019-03-06] MEDS: allopurinoL 300 MG TAB PO SCH (20:14)
[2019-03-07] MEDS: guaiFENesin 200 MG TAB PO SCH ×2 (06:13→13:32)
[2019-03-07 06:58] LABS: Hematocrit (blood only) 34.3 % (42-52); Hemoglobin 11.8 g/dL (14.0-18.0); Mean Corpuscular Hemoglobin 29.5 pg (25-34); Mean Corpuscular Hgb Conc 34.4 g/dL (32-36); Mean Corpuscular Volume 85.8 fL (80-100); Mean Platelet Volume 9.8 fL (7.4-10.4); Platelet Count 381 K/uL (130-400); RDW Coefficient of Variation 12.5 % (11.5-14.5); RDW Standard Deviation 39.2 fL (36.4-46.3); White Blood Count 10.49 K/uL (4.8-10.8)
[2019-03-07 07:31] LABS: BUN Creatinine Ratio 13.9 (10-20); Calcium 9.2 mg/dl (8.5-10.1); Creatinine Clr Calc Pharmacy 74.4 ml/min; Est GFR (African American) 87.4; Est GFR (Non-African American) 75.4; Potassium 3.6 mmol/L (3.5-5.1)
[2019-03-07] MEDS: INSULIN ASPART 100 UNITS/ML 3 ML PEN SC SCH ×2 (08:46→13:32)
[2019-03-07] MEDS: ASPIRIN 81 MG ECTAB PO SCH (08:47)
[2019-03-07] MEDS: LACTOBACILLUS ACIDOPHILUS (FLORANEX) TAB PO SCH ×2 (08:47→13:32)
[2019-03-07] MEDS: INSULIN GLARGINE SOLOSTAR 100 UNITS/ML 3 ML PEN SC SCH (08:47)
[2019-03-07] MEDS: lisinopriL 40 MG TAB PO SCH (08:48)
[2019-03-07] MEDS: DOXYCYCLINE HYCLATE 100 MG CAP PO SCH (08:48)
[2019-03-07] MEDS: AMLODIPINE BESYLATE 5 MG TAB PO SCH (08:48)
[2019-03-07] MEDS: METOPROLOL SUCC 50MG EXT REL TAB PO SCH (08:48)
[2019-03-07] MEDS: CEFEPIME 1,000 MG in SYRINGE 0 ML IV SCH (08:59)
[2019-03-07] MEDS: BENZONATATE 100 MG CAPSULE PO PRN (10:59)
--- NOTE | 2019-03-07 12:37 | Hospitalist Progress Note ---
Date of Service March 07, 2019 Assessment & Plan (1) Sepsis: Sepsis Community Acquired Pneumonia --CTA:There is no evidence of pulmonary embolus in the main, lobar, or segmental pulmonary arteries. Patchy airspace consolidation is seen at the right lung base as above. The appearance is typical for pneumonia/aspiration pneumonitis. Clinical correlation will be required and radiographic follow-up to resolution is recommended. Cardiomegaly. Mildly enlarged right hilar lymph nodes are likely on a reactive basis. Postoperative change and volume loss are consistent with previous left-sided pulmonary resection. Correlation with the patient's medical/surgical history will be required. There are 2 low suspicion right upper lobe pulmonary nodules which measure 3 mm. Correlation with any prior outside imaging studies is recommended to assess for stability. --MRSA Negative --Lactate levels normalized after IV fluids --Continue Doxycycline, Cefepime Day #4 --Received IV fluids --Blood Cultures:No growth to date Plan to discharge home on p.o. antibiotics to complete the course Pulmonary Nodules Also noted Pulmonary nodule on prior Imaging in 2004 Follow up as outpatient with repeat Imaging Constipation Bowel regimen Encouraged to ambulate (2) Pneumonia: As Above (3) Hypomagnesemia: Replete electrolytes as needed (4) Sinus tachycardia: Resolved CAD S/P Bypass Continue aspirin, statin, metoprolol HTN Stable Continue Amlodipine, Lisinopril, Metoprolol Monitor DM II Last Hb A1C: 7.3 Metformin on hold Continue ISS, Lantus while hospitalized Monitor BGs Elevated D-Dimer CTA chest negative for PE B/L LE No edema, calf tenderness Cervical Spondylosis Follow up with pain management at [place] Monitor DVT Px: SCDs Re: H/O allergy to Heparin Encourage to ambulate CODE STATUS Full code Disposition Expect to discharge home when stable Subjective Patient is seen and examined at bedside States feeling a lot better today Minimal cough No new complaints Denies any SOB, dizziness, nausea, abd pain Family at bedside Eager to get discharged Review of Systems Review of Systems: All systems reviewed & are unremarkable except as noted in HPI & below Physical Exam Physical Exam: Physical Exam: Vitals signs as noted above General Appearance:Moderately built and nourished, no apparent distress Head: normocephalic, Atraumatic Eyes: normal inspection, EOMI Neck: supple, Trachea midline Respiratory/Chest: Normal breath sounds, CTA, No accessory muscle use Cardiovascular: S1, S2, No murmur Abdomen/GI:Soft, Non tender, Bowel sounds present Extremities/Musculoskelatal:normal inspection, no edema Neurologic/Psych:AAOX3, grossly no focal neurological deficits Skin: normal color, warm Results & Data Vital Signs (Past 12 Hours) Vital Signs Temp Pulse Pulse Pulse Resp BP BP 03/07/19 12:00 36.6 C 62 18 125/74 03/07/19 08:45 86 126/80 03/07/19 08:00 60 03/07/19 07:21 36.7 C 66 18 108/60 03/07/19 04:47 37.4 C 66 18 125/68 Pulse Ox 03/07/19 12:00 93 03/07/19 08:45 03/07/19 08:00 03/07/19 07:21 92 03/07/19 04:47 93 Laboratory Results Short CBC 03/07/19 Range/Units 06:38 WBC 10.49 (4.8-10.8) K/uL Hgb 11.8 L (14.0-18.0) g/dL Hct 34.3 L (42-52) % Plt Count 381 (130-400) K/uL BMP 03/07/19 06:38 Sodium 138 Potassium 3.6 Chloride 104 Carbon Dioxide 29 BUN 14 Creatinine 1.00 Glucose 128 H Calcium 9.2 (1) Sepsis Sepsis acute organ dysfunction status: unspecified Sepsis type: sepsis due to unspecified organism Qualified Code(s): A41.9 - Sepsis, unspecified organism (2) Pneumonia Laterality: right Lung location: lower lobe of lung Pneumonia type: due to u nspecified organism Qualified Code(s): J18.9 - Pneumonia, unspecified organism
--- NOTE | 2019-03-07 12:45 | Discharge Summary ---
Date of Service March 07, 2019 Admission HPI Per Admitting Provider 69 years old male with past medical history of paroxysmal A. fib, hypertension, dyslipidemia, Gouty arthropathy, diabetes, cervical spondylosis CAD s/p bypass presented to the ER for worsening cough. Patient said for about 3 weeks he has been having a cough. He said for the first 2 weeks the cough was dry, but in the third week he started to have greenish productive sputum. Patient said that he did not seek any help from his PCP but he tries [id number] cough med with no relief. He said that in the last few days symptoms got worse to the point where he has not been eating or drinking much since Saturday. He said that his checked his temperature seems to have a low grade fever, but he said that he had some chills. He denies any recent travel or sick contacts. Denies any chest pain, palpitation, dizziness, and shortness of breath. Admission Exam Per Admitting Provider Physical Exam Physical Exam: General- No acute distress Head- atraumatic Eyes- PERRL, EOMI, ENT- oropharynx clear Neck- supple, no JVD Lungs- clear to auscultation Heart- +tachycardia, no murmur Abdomen- normal bowel sounds, soft, nontender Extremities- no calf tenderness Neuro- alert, oriented x 3; PERRL, EOMI; no facial palsy; no dysarthria Skin- warm & dry Principal Diagnosis Community-acquired pneumonia Sepsis Pulmonary nodules Discharge Data Allergies Allergy/AdvReac Type Severity Reaction Status Date / Time heparin Allergy Mild Verified 03/04/19 09:55 Sulfa (Sulfonamide Allergy Unknown Verified 03/04/19 09:55 Antibiotics) Consultations 03/04/19 10:56 ED Decision to Admit Stat Procedures Performed --CTA:There is no evidence of pulmonary embolus in the main, lobar, or segmental pulmonary arteries. Patchy airspace consolidation is seen at the right lung base as above. The appearance is typical for pneumonia/aspiration pneumonitis. Clinical correlation will be required and radiographic follow-up to resolution is recommended. Cardiomegaly. Mildly enlarged right hilar lymph nodes are likely on a reactive basis. Postoperative change and volume loss are consistent with previous left-sided pulmonary resection. Correlation with the patient's medical/surgical history will be required. There are 2 low suspicion right upper lobe pulmonary nodules which measure 3 mm. Correlation with any prior outside imaging studies is recommended to assess for stability. Ordered Studies 03/04/19 08:33 CT head/brain wo con Stat 03/04/19 09:18 CT angio chest PE protocol Stat Hospital Course (1) Sepsis: Sepsis Community Acquired Pneumonia --CTA:There is no evidence of pulmonary embolus in the main, lobar, or segmental pulmonary arteries. Patchy airspace consolidation is seen at the right lung base as above. The appearance is typical for pneumonia/aspiration pneumonitis. Clinical correlation will be required and radiographic follow-up to resolution is recommended. Cardiomegaly. Mildly enlarged right hilar lymph nodes are likely on a reactive basis. Postoperative change and volume loss are consistent with previous left-sided pulmonary resection. Correlation with the patient's medical/surgical history will be required. There are 2 low suspicion right upper lobe pulmonary nodules which measure 3 mm. Correlation with any prior outside imaging studies is recommended to assess for stability. --MRSA Negative --Lactate levels normalized after IV fluids --Continue Doxycycline, Cefepime Day #4 --Received IV fluids --Blood Cultures:No growth to date Plan to discharge home on p.o. antibiotics to complete the course Pulmonary Nodules Also noted Pulmonary nodule on prior Imaging in 2004 Follow up as outpatient with repeat Imaging Constipation Bowel regimen Encouraged to ambulate (2) Pneumonia: As Above (3) Hypomagnesemia: Replete electrolytes as needed (4) Sinus tachycardia: Resolved CAD S/P Bypass Continue aspirin, statin, metoprolol HTN Stable Continue Amlodipine, Lisinopril, Metoprolol Monitor DM II Last Hb A1C: 7.3 Metformin on hold Continue ISS, Lantus while hospitalized Monitor BGs Elevated D-Dimer CTA chest negative for PE B/L LE No edema, calf tenderness Cervical Spondylosis Follow up with pain management at [place] Monitor DVT Px: SCDs Re: H/O allergy to Heparin Encourage to ambulate CODE STATUS Full code Disposition Expect to discharge home when stable Total Time Total Time Spent Total Time Spent (In Minutes): 37 minutes Total Time Includes: Examination of the Patient, Discharge Planning, Medication Reconciliation, Communication With Other Providers and Other Discharge Plan Discharge Items Patient Disposition: Home - Self-Care Reason For Visit: URI Discharge Diagnosis: Community-acquired pneumonia Sepsis Pulmonary nodules Activity: Resume your previous activity Exercise/Sports: Gradually increase as tolerated Non-emergency contact: Primary Care Provider and [employer] Call non-emergency contact if: you have any medication questions, your symptoms worsen, your pain is not controlled, your pain is worsening, your pain is unusual for you, your pain is concerning for you and you have a fever Follow-up/Referrals: Gold Gamino MD [Primary Care Provider] - Diet: Carb Consistent or DM2 and Heart Healthy Addtl Attending Provider Instructions: Follow-up with your primary care physician Dr. 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 Follow-up with your physician for results. Complete the antibiotic course as prescribed Seek immediate medical attention if your symptoms reoccur or worsen Pending Studies at Discharge: Yes Studies:: Blood cultures Stand-Alone Forms: My [facility] [place] [employer], Smoking Cessation Medications and DC Order Prescriptions: New doxycycline hyclate 100 mg Capsule 100 mg PO BID 5 Days Qty: 10 RF: 0 Lactobacillus acidoph-L.bulgar [Floranex] 1 million cell Tablet 4 tab PO QIDM Qty: 40 RF: 0 cefdinir 300 mg capsule 300 mg PO BID 5 Days Qty: 10 RF: 0 Continued atorvastatin 40 mg tablet 40 mg PO HS RF: 0 metoprolol succinate 100 mg tablet extended release 24 hr 50 mg PO QAM RF: 0 aspirin 81 mg Tablet,Delayed Release (Dr/Ec) 162 mg PO QAM RF: 0 sildenafil 100 mg tablet 100 mg PO UD RF: 0 amlodipine 10 mg tablet 10 mg PO QAM RF: 0 metformin 1,000 mg tablet 1,000 mg PO BIDM RF: 0 nitroglycerin [Nitrostat] 0.4 mg Tablet, Sublingual 0.4 mg sublingual UD RF: 0 allopurinol 300 mg tablet 300 mg PO HS RF: 0 lisinopril 40 mg tablet 40 mg PO QAM RF: 0 Discharge Orders: Discharge Order (Routine); Ordered 03/07/19 Ordered By: Tyrone Santillan Admission Data Admit Date/Time: 03/04/19 12:09 Attending Provider: Tyrone Santillan Admit Provider: Kristyn Brito Primary Care Provider: Gold Gamino Other Providers: Tyrone Santillan Other Interventions: Discharge Summary Assessment (RN) Last Done: 03/07/19 14:36 DC Date/Time DO NOT enter until pt leaves facility: 03/07/19 15:02
== END 2019-03-07 15:02 | disposition home or self-care (01) | DRG 871 ==
LOC: ED 08:15 → 2N 12:09 → SUATTDRO 12:09 → 2N 13:52